=== PATIENT | female | born 1955 | race Caucasian/White ===

== ENCOUNTER → 2017-03-14 | Outpatient (CLI) | payer BC ==
[~2017-03-14] MED LIST: ALLERGY RELIEF10 M1 PO; ASPIR-LOW81 MG PO; BENADRYL50 MG PO; BUDEPRION SR150 M1 PO; BUPROPION XL300 MG PO; BYSTOLIC10 MG PO; CARDIZEM CD 24240 MG PO; CARDIZEM CD240 MG PO; CINNAMON500 MG PO; COZAAR 50MG50 MG/TAB PO; DILTIAZEM CD120 MG PO; DULERA1 ARO IH; FOLIC ACID800 MCG PO; HCTZ 25MG25 MG PO; IBU400 MG PO; KLONOPIN 0.5MG0.5 MG PO; KLOR-CON 1010 MEQ PO; LANSOPRAZOLE30 M1 NG; MULTI VITAMINS1 TAB PO; NORCO 325 MG-7.1 TAB PO; PREVACID 30MG30 M1 PO; PREVACID 30MG30 MG PO; PROMETHAZINE V473 M2 PO; SINGULAIR 110 MG/TAB PO; SYNTHROID0.05 MG/TA PO; SYNTHROID0.075 MG/T PO; SYNTHROID0.1 MG/TAB PO; TAMBOCOR150 MG PO; TAMBOCOR50 MG PO; VASOTEC 5MG5 MG/TAB PO; VITAMIN C500 MG PO; WELLBUTRIN XL300 M1 PO; WELLBUTRIN XL300 MG PO; WOMEN'S DAILY1 TAB PO; XANAX .25M0.25 MG/TA PO; ZANTAC 150MG T150 MG PO; chromium
== END ==
LOC: COL.VAS 11:12
DX: R09.89 Other specified symptoms and signs involving the circulatory and respiratory systems (principal)

== ENCOUNTER → 2017-04-09 | Outpatient (CLI) | payer BC | LOC: MC.RAD 16:22 | DX: Z12.31 Encounter for screening mammogram for malignant neoplasm of breast (principal) ==

== ENCOUNTER → 2017-04-12 | Outpatient (CLI) | payer BC | LOC: MC.RAD 08:24 | DX: N60.02 Solitary cyst of left breast (principal); R92.2 Inconclusive mammogram ==

== ENCOUNTER → 2018-04-21 | Outpatient (CLI) | payer BC | LOC: MC.RAD 07:12 | DX: Z12.31 Encounter for screening mammogram for malignant neoplasm of breast (principal) ==

== ENCOUNTER → 2019-06-08 | Outpatient (CLI) | payer BC | LOC: MC.RAD 11:15 | DX: Z12.31 Encounter for screening mammogram for malignant neoplasm of breast (principal); N63.20 Unspecified lump in the left breast, unspecified quadrant; Z98.82 Breast implant status ==

== ENCOUNTER → 2019-06-10 | Outpatient (CLI) | payer BC | LOC: MC.RAD 13:58 | DX: N60.02 Solitary cyst of left breast (principal); N63.20 Unspecified lump in the left breast, unspecified quadrant ==

== ENCOUNTER → 2021-03-22 | Outpatient (CLI) | payer BC | LOC: MHCPAIN 08:26 | DX: M47.817 Spondylosis without myelopathy or radiculopathy, lumbosacral region (principal); M54.5 Low back pain; M53.3 Sacrococcygeal disorders, not elsewhere classified | CPT/HCPCS: G0463 ==

== ENCOUNTER 2021-05-16 11:15 | Outpatient (RCR) | payer BC | END 2021-05-18 14:57 | disposition home or self-care (01) | LOC: WSPT 11:15 | DX: M54.5 Low back pain (principal) ==

== ENCOUNTER → 2021-07-11 | Outpatient (CLI) | payer BC | LOC: MHCPAIN 08:46 | DX: M47.817 Spondylosis without myelopathy or radiculopathy, lumbosacral region (principal); M53.3 Sacrococcygeal disorders, not elsewhere classified; G89.29 Other chronic pain | CPT/HCPCS: G0463 ==

== ENCOUNTER → 2021-07-20 | Outpatient (CLI) | payer BC | LOC: MHCPAIN 08:24 | DX: M47.817 Spondylosis without myelopathy or radiculopathy, lumbosacral region (principal); M53.3 Sacrococcygeal disorders, not elsewhere classified | CPT/HCPCS: G0260; J1040; Q9967 ==

== ENCOUNTER → 2021-08-01 | Outpatient (CLI) | payer BC | LOC: MHCPAIN 08:24 | DX: M47.817 Spondylosis without myelopathy or radiculopathy, lumbosacral region (principal); M53.3 Sacrococcygeal disorders, not elsewhere classified; M54.50 Low back pain, unspecified | CPT/HCPCS: G0463 ==

== ENCOUNTER → 2021-11-22 | Outpatient (CLI) | payer BC | LOC: MHCPAIN 11:01 | DX: M47.897 Other spondylosis, lumbosacral region (principal); M53.3 Sacrococcygeal disorders, not elsewhere classified; G89.29 Other chronic pain | CPT/HCPCS: G0463 ==

== ENCOUNTER 2022-06-08 07:45 | Day surgery (SDC) | payer MEDICARE, BC ==
[2005-07-20 12:54] VITALS: BP 126/87
[~2022-06-08] VITALS: Ht 165.1 cm; Wt 98.6 kg
[2022-06-08] MEDS ORDERED: REQUIP0.25 MG PO (08:41)
[2022-06-08] MEDS ORDERED: ALDACTONE 25MG25 M1 PO (08:42)
[2022-06-08] MEDS ORDERED: TRELEGY ELLIPT1 EACH IH (08:42)
[2022-06-08] MEDS ORDERED: HCTZ12.5TAB PO (08:42)
[2022-06-08 08:54] VITALS: BP 112/81; PULSE 83; TEMP 97.1
[2022-06-08 10:15] VITALS: BP 92/69; PULSE 78
[2022-06-08 10:30] VITALS: BP 98/61; PULSE 80
[2022-06-08 10:45] VITALS: BP 106/55; PULSE 73
--- NOTE | 2022-06-08 10:49 | NUR ---
1015: Patient arrived back into [facility] from Endo procedure. Patient is alert and awake. Vital signs stable on room air. Report received from KILEY Rhoades. Patient requesting sprite and muffins. Patient denies pain and nausea. Call light left within reach. Sister brought back into room from waiting room. 1025: MD in to see patient. 1030: Patient vitally stable. Tolerating food and drink well. Denies pain or nausea at this time. 1045: Patient meets discharge criteria. IV removed without complications. Went through discharge instructions with patient and sister. Patient got dressed. Escorted to patient entrance via wheelchair. Patient left in the care of her sister, Serina.
== END 2022-06-08 10:55 | disposition home or self-care (01) ==
LOC: SDCO 07:45
DX: Z12.11 Encounter for screening for malignant neoplasm of colon (principal); D12.2 Benign neoplasm of ascending colon; D12.3 Benign neoplasm of transverse colon; K63.5 Polyp of colon; K57.30 Diverticulosis of large intestine without perforation or abscess without bleeding; G47.33 Obstructive sleep apnea (adult) (pediatric); I10 Essential (primary) hypertension; J45.909 Unspecified asthma, uncomplicated; Z79.899 Other long term (current) drug therapy
CPT/HCPCS: J2704; J7030

== ENCOUNTER → 2022-10-25 | Outpatient (CLI) | payer MEDICARE, BC ==
[~2022-10-25] MED LIST changes: +ALDACTONE 25MG25 M1 PO; +HCTZ12.5TAB PO; +REQUIP0.25 MG PO; +TRELEGY ELLIPT1 EACH IH
== END ==
LOC: MC.RAD 10:49
DX: R92.0 Mammographic microcalcification found on diagnostic imaging of breast (principal); R92.8 Other abnormal and inconclusive findings on diagnostic imaging of breast